=== PATIENT | female | born 1970 | race African-American/Black ===

== ENCOUNTER 2018-10-19 16:12 | Emergency (ER) | payer OTHER ==
[~2018-10-19] VITALS: Ht 172.7 cm; Wt 83.0 kg
[2018-10-19 16:22] VITALS: Ht 172.7 cm; Wt 83.0 kg
[2018-10-19 17:46] LABS: PLATELET COUNT 323 x10^3mcL (130-400)
[2018-10-19 17:51] LABS: BASOPHIL % 0 % (0-2); RED CELL DISTRIBUTION WIDTH 27.4 % (11.5-14.5)
[2018-10-19 17:52] LABS: CALCIUM 8.2 mg/dL (8.5-10.1); CARBON DIOXIDE 24.9 mmol/L (21-32); CHLORIDE SERUM 103 mmol/L (98-107); CREATININE SERUM 0.9 mg/dL (0.6-1.0); GFR1 > 60 mL/min; GLUCOSE SERUM 93 mg/dL (74-106); POTASSIUM SERUM 3.9 mmol/L (3.5-5.1); SODIUM SERUM 138 mmol/L (136-145)
[2018-10-19 17:57] LABS: ALKALINE PHOSPHATASE 45 U/L (46-116); ALT/SGPT 15 U/L (14-59); AST/SGOT 12 U/L (15-37); BILIRUBIN TOTAL 0.21 mg/dL (0.20-1.00); LIPASE 113 IU/L (73-393); TOTAL PROTEIN, SERUM 7.3 g/dL (6.4-8.2)
[2018-10-19 18:14] LABS: rbc morphology (normal/abnorm) ABNORMAL (NORMAL)
[2018-10-19 19:59] LABS: UA SPECIFIC GRAVITY <=1.005 (1.005-1.035); microscopic required? YES; urine erythrocyte 3+ (NEGATIVE)
[2018-10-19 20:11] VITALS: BP 127/62
== END 2018-10-19 20:43 | disposition home or self-care (01) ==
LOC: ED 16:12
PROVIDERS: Emergency Medicine
DX: N83.202 Unspecified ovarian cyst, left side (principal); D64.9 Anemia, unspecified; Z88.5 Allergy status to narcotic agent; Z88.8 Allergy status to other drugs, medicaments and biological substances
CPT/HCPCS: J1885; J2405; J7030